=== PATIENT | female | born 1965 | race Caucasian/White ===

== ENCOUNTER → 2020-06-13 | Outpatient (CLI) | payer OTHER ==
[~2020-06-13] MED LIST: AZAT50TA2 PO; SULF500T2 PO
== END ==
LOC: M LABSMTC 12:31
PROVIDERS: ATTEND Anesthesiology
DX: Z01.812 Encounter for preprocedural laboratory examination (principal); Z20.828 Contact with and (suspected) exposure to other viral communicable diseases
CPT/HCPCS: C9803; U0003

== ENCOUNTER 2020-06-18 10:37 | Day surgery (SDC) | payer BC ==
[~2020-06-18] VITALS: Ht 162.6 cm; Wt 78.5 kg
[~2020-06-18 10:37] MED LIST changes: +LIDOCAINE 2% 100MG/5ML SDV (FOR ANES.) As Ordered ONE; +NS 1,000 ML IV ONE; +propofoL 200 MG/20 ML VIAL As Ordered ONE
[2020-06-18] MEDS ORDERED: PHENYLephrine HCL 500 MCG/5 ML (100MCG/ML) SYRINGE (J2370) As Ordered ONE (11:47)
--- NOTE | 2020-06-18 11:59 | ROOR ---
Patient Name: Mindy Loving Procedure Date: 06/18/2020 11:35 AM Date of : 1965 Age: 54 Room: [facility] Gender: Female Note Status: Finalized Procedure: Total Colonoscopy to cecum + Bx. Indications: Follow-up of chronic ulcerative pancolitis, Disease activity assessment of chronic ulcerative pancolitis Providers: Bernardo Stanton MD Referring MD: Denise Kimbrough NP Requesting Provider: Medicines: Monitored Anesthesia Care Complications: No immediate complications. Procedure: Pre-Anesthesia Assessment: - The heart rate, respiratory rate, oxygen saturations, blood pressure, adequacy of pulmonary ventilation, and response to care were monitored throughout the procedure. The Colonoscope was introduced through the anus and advanced to the cecum, identified by appendiceal orifice and ileocecal valve. The colonoscopy was performed without difficulty. The patient tolerated the procedure well. The quality of the bowel preparation was excellent. Findings: The perianal and digital rectal examinations were normal. Non-bleeding internal hemorrhoids were found during retroflexion. The hemorrhoids were small and Grade I (internal hemorrhoids that do not prolapse). A large scar was found in the entire colon. The scar tissue was healthy in appearance. Background biopsies were taken for histology with a cold forceps from the ascending colon, transverse colon, descending colon and rectosigmoid colon. These biopsy specimens were sent to Pathology. The exam was otherwise without abnormality. Impression: - Non-bleeding internal hemorrhoids. - Scar in the entire examined colon. - The examination was otherwise normal. - Background biopsies were taken from the ascending colon, transverse colon, descending colon and rectosigmoid colon. - The exam was otherwise normal to the cecum. Recommendation: - Patient has a contact number available for emergencies. The signs and symptoms of potential delayed complications were discussed with the patient. Return to normal activities tomorrow. Written discharge instructions were provided to the patient. - High fiber diet. - Discharge patient to home. - Continue present medications. - Await pathology results. - Telephone GI clinic for pathology results in 1 week. - Repeat colonoscopy in 5 years for surveillance based on pathology results. - Return to referring physician. - The findings and recommendations were discussed with the patient. Bernardo Stanton MD Bernardo Stanton MD 06/18/2020 11:59:19 AM Electronically signed by Bernardo Stanton MD Number of Addenda: 0 Note Initiated On: 06/18/2020 11:35 AM Estimated Blood Loss: Estimated blood loss: none.
[2020-06-18 12:35] VITALS: BP 141/86
--- NOTE | 2020-06-18 15:41 | ECGEPIP ---
[facility] Test Date: 2020-06-18 Pat Name: FLASH EL Department: Room: - Gender: Female Drug Coordinator: TAM : 1965 Requested By: Bradly Flores Order Number: [id number] Reading MD: Sourav Yang Measurements Intervals [place] Rate: 89 P: [place]: 0 QRS: 84 QRSD: 107 T: -14 QT: 433 QTc: 529 Interpretive Statements Atrial fibrillation with a controlled ventricular response Low QRS complex voltage in the limb leads [place] indeterminate Nonspecific repolarization abnormalities Comparison tracing not available Electronically Signed on 06-18-2020 15:41:05 EST by Sourav Yang
== END 2020-06-18 12:55 | disposition home or self-care (01) ==
LOC: M OPP 10:37
PROVIDERS: ATTEND Internal Medicine Gastroenterology
DX: K63.89 Other specified diseases of intestine (principal); K64.0 First degree hemorrhoids; K51.00 Ulcerative (chronic) pancolitis without complications; Z79.899 Other long term (current) drug therapy; Z87.891 Personal history of nicotine dependence
CPT/HCPCS: 45380; 88305; 93005; J2370